=== PATIENT | female | born 1940 | race Caucasian/White ===

== ENCOUNTER → 2021-08-27 | Outpatient (CLI) | payer MEDICARE ==
[~2021-08-27] MED LIST: ASPIR-LOW81 MG PO; AZOPT OU; CLARITIN10 M2 PO; GLUCOPHAGE1000 MG PO; HYDROXYZINE HCL50 MG PO; JANUVIA100 MG PO; LEVAQUIN500 MG PO; LIPITOR TAB 1010 MG PO; LIPITOR80 MG PO; LISINOPRIL20 MG PO; OMEGA 3 1,0001 EACH PO; PLAVIX 75 MG TA75 MG PO; REQUIP1 MG PO; SPIRIVA18 MCG INH; TOPROL XL25 MG PO; TRAVATAN OU; VENTOLIN HFA 66.7 GM INH; VITAMIN D 11000 UNIT PO; ZANAFLEX 4 MG TA4 MG PO; ZANTAC 150 MG150 MG PO; [UNRECOGNIZED DRUG - OTHER] PO
== END ==
LOC: LAB 12:24
DX: H40.1133 Primary open-angle glaucoma, bilateral, severe stage (principal); Z20.822 Contact with and (suspected) exposure to COVID-19
CPT/HCPCS: U0003

== ENCOUNTER 2021-09-06 16:40 | Emergency (ER) | payer MEDICARE | END 2021-09-06 21:46 | disposition home or self-care (01) | LOC: ER1 16:40 | DX: H40.9 Unspecified glaucoma (principal); E11.9 Type 2 diabetes mellitus without complications; I10 Essential (primary) hypertension | CPT/HCPCS: 99283 ==